=== PATIENT | male | born 1985 | race African-American/Black ===

== ENCOUNTER 2020-02-29 02:36 | Emergency (ER) | payer MEDICAID, SELFPAY ==
--- NOTE | ~2020-02-29 | CT_ITS ---
EXAMINATION: CT brain wo con DATE: 02/29/2020 03:14 INDICATION: Headache. TECHNIQUE: Computed tomography (CT) of the head was performed without intravenous contrast. The mA wa s adjusted according to patient size. Iterative reconstruction technique was employed. The dose-lengt h product was 605.33 mGy-cm. COMPARISON: None FINDINGS: There is no intracranial hemorrhage, acute infarction, or abnormal intracranial mass lesion . The ventricles are normal in size. The paranasal sinuses are clear. The mastoid air cells are vladimir l. IMPRESSION: 1. Normal brain. Reviewed, dictated and finalized at location A. D BAG MACHINE OPERATOR IMPRESSION: 1. Normal brain.
[2020-02-29 02:41] VITALS: BP 131/84; PULSE 88; RESP 16; TEMP 36.3; O2SAT 99
--- NOTE | 2020-02-29 03:02 | ED_ITS ---
HPI - Headache General Chief Complaint: Headache Stated Complaint: migraine Time Seen by Provider: 02/29/20 03:22 History of Present Illness HPI Narrative: Patient is a 34-year-old gentleman who presents the emergency department with chief complaint of headache. Patient reports he has prior history of headaches and states that this 1 is probably not the worst when he is ever had but it is a very bad 1. Patient reports has been several years since he had a headache this bad reports this been going on for about 4 days. Patient states it wakes him up from sleep at night states that is not improved by anything nor is it worsened by anything. The patient denies any other family members with similar symptoms denies carbon monoxide exposure denies fever or other flulike symptoms. The patient does report that he has had a tooth that has bothered him in his posterior molars but states that that is been doing well. Review of Systems Review of Systems: Narrative: A 10 system review of systems was completed on the patient and is negative except for what is stated in the HPI. Nursing and ancillary documentation was reviewed. PMFSH Comments Patient has past medical history significant for migraines Social history patient denies illicit drug use Exam Narrative: Exam Narrative: GENERAL: Well-appearing, well-nourished, and in no acute distress. HEAD: Normocephalic, atraumatic. EYES: PERRLA and EOMI. ENT: Nares clear, no rhinorrhea or epistaxis. Mucous membranes moist. NECK: Supple. CHEST: Clear to auscultation. No respiratory distress. HEART: Regular rate and rhythm. No murmur heard. Normal peripheral pulses. ABDOMEN: Soft, nontender, nondistended, normal active bowel sounds. EXTREMITIES: Normal range of motion. No edema. SKIN: Warm, dry, no rash. NEURO: No focal deficits. Alert and oriented x3. PSYCH: Normal mood and affect. Course Vital Signs Vital signs: Vital Signs Temperature 36.3 C L 02/29/20 02:41 Pulse Rate 88 02/29/20 02:41 Respiratory Rate 16 02/29/20 02:41 Blood Pressure 131/84 02/29/20 02:41 Pulse Oximetry 99 02/29/20 02:41 Temperature 36.3 C L 02/29/20 02:41 Pulse Rate 88 02/29/20 02:41 Respiratory Rate 16 02/29/20 02:41 Blood Pressure 131/84 02/29/20 02:41 Pulse Oximetry 99 02/29/20 02:41 Discharge Plan Discharge Clinical Impression: Headache Qualifiers: Headache type: unspecified Headache chronicity pattern: acute headache Intractability: not intractable Qualified Code(s): R51.9 - Headache, unspecified Patient Disposition: Home, Self-Care Condition: Stable Instructions: Antibiotic Form, Acute Headache (ED) Follow-up/Referrals: PHYSICIAN,TARGET PROTECTION SPECIALIST [Primary Care Provider] - Agueda Julio MD [Physician] - Time of Disposition: 04:01
[2020-02-29] MEDS: KETOROLAC 30 MG/ML VIAL (*BKC) IV PUSH (03:17)
[2020-02-29] MEDS: diphenhydrAMINE HCl INJ 50 MG/ML VIAL IV PUSH (03:17)
[2020-02-29] MEDS: SODIUM CHLORIDE 0.9% IV 1,000 ML 999 ML IV CONT (03:17)
[2020-02-29] MEDS: METOCLOPRAMIDE HCL INJ 10 MG/2 ML VIAL IV PUSH (03:17)
[2020-02-29 04:11] VITALS: BP 129/77; PULSE 85; RESP 16; O2SAT 99
== END 2020-02-29 04:12 | disposition home or self-care (01) ==
PROVIDERS: Emergency Provider Emergency Medicine
DX: R51.9 Headache, unspecified (principal)
CPT/HCPCS: 70450; 96361; 96374; 96375; 99284; J1200; J1885; J2765; J7030

== ENCOUNTER 2020-06-03 19:51 | Emergency (ER) | payer OTHER, SELFPAY ==
[2020-06-03 19:53] VITALS: BP 132/77; PULSE 109; RESP 16; TEMP 36.5; O2SAT 98
--- NOTE | 2020-06-03 21:00 | ED.BACK ---
HPI - Back Pain/Injury General Chief Complaint: Fall Stated Complaint: back injury Time Seen by Provider: 06/03/20 20:52 Source: patient, RN notes reviewed and old records reviewed History of Present Illness HPI Narrative: 34-year-old male presents to emergency department after sustaining a fall about 1 hour prior to arrival. Patient reports he was walking out of a restaurant, slipped, and fell backwards hitting his head on concrete. Patient denies loss of consciousness. No anticoagulation use. Notes reports having low back pain. He has not taken anything for the pain so far. Related Data Home Medications Medication Instructions Recorded Confirmed No Home Medications 02/29/20 02/29/20 Allergies Allergy/AdvReac Type Severity Reaction Status Date / Time No Known Allergies Allergy Verified 06/03/20 19:56 Review of Systems Review of Systems: Narrative: CONSTITUTIONAL: Denies fever, chills, or sweats. Reports posterior head pain EYES: Denies visual changes, redness, or discharge. ENT: Denies rhinorrhea, congestion, sore throat, or otalgia. CARDIOVASCULAR: Denies chest pain, palpitations, or edema. RESPIRATORY: Denies cough or dyspnea. GASTROINTESTINAL: Denies abdominal pain, nausea, vomiting, or diarrhea. GENITOURINARY: Denies dysuria or hematuria. SKIN: Denies rash or itching. MUSCULOSKELETAL: Reports low back pain NEUROLOGIC: Denies headache, numbness, dizziness, or weakness. PSYCHIATRIC: Denies anxiety or depression. All systems reviewed & are unremarkable except as noted in HPI and below (ROS) Exam Narrative: Exam Narrative: GENERAL: Well-appearing, well-nourished, and in no acute distress. HEAD: Normocephalic. Posterior head tenderness to palpation EYES: PERRLA and EOMI. ENT: Nares clear, no rhinorrhea or epistaxis. Mucous membranes moist. NECK: Supple. CHEST: Clear to auscultation. No respiratory distress. HEART: Regular rate and rhythm. No murmur heard. Normal peripheral pulses. ABDOMEN: Soft, nontender, nondistended, normal active bowel sounds. EXTREMITIES: Normal range of motion. No edema. MSK: low back TTP. SKIN: Warm, dry, no rash. NEURO: No focal deficits. Alert and oriented x3. PSYCH: Normal mood and affect. Course Course Emergency Course: 22:15 -reevaluated patient, pain improved. Counseled patient to take Tylenol Motrin/ibuprofen as needed for pain. Follow-up with medical provider within 1 week. Return to emergency department if symptoms persist, worsen, or other concerns. Due to mechanism of injury, hold on x-ray of back. Also since patient did not pass out or lose consciousness, and not on anticoagulation, held on head CT. Vital Signs Vital signs: Vital Signs Temperature 36.5 C 06/03/20 19:53 Pulse Rate 109 H 06/03/20 19:53 Respiratory Rate 16 06/03/20 19:53 Blood Pressure 132/77 06/03/20 19:53 Pulse Oximetry 98 06/03/20 19:53 Temperature 36.5 C 06/03/20 19:53 Pulse Rate 78 06/03/20 22:26 Respiratory Rate 18 06/03/20 22:26 Blood Pressure 138/78 06/03/20 22:26 Pulse Oximetry 99 06/03/20 22:26 MDM - Back Pain/Injury Medical Records Attestation: I reviewed the patient's medical records. Discharge Plan Discharge Clinical Impression: Fall Qualifiers: Encounter type: initial encounter Qualified Code(s): W19.XXXA - Unspecified fall, initial encounter Low back strain Qualifiers: Encounter type: initial encounter Qualified Code(s): S39.012A - Strain of muscle, fascia and tendon of lower back, initial encounter Traumatic injury of head Qualifiers: Encounter type: initial encounter Qualified Code(s): S09.90XA - Unspecified injury of head, initial encounter Patient Disposition: Home, Self-Care Condition: Improved Instructions: Musculoskeletal Pain (ED) Additional Instructions: 1. Follow-up with medical provider within 1 week 2. Take Tylenol Motrin/ibuprofen as needed for pain. Prescriptions: No Action No Home Medications
[2020-06-03] MEDS: ACETAMINOPHEN 325 MG TABLET 650 MG PO (21:06)
[2020-06-03] MEDS: diazePAM (*CRX) 2 MG TABLET PO (21:13)
[2020-06-03 22:26] VITALS: BP 138/78; PULSE 78; RESP 18; O2SAT 99
== END 2020-06-03 22:29 | disposition home or self-care (01) ==
PROVIDERS: Emergency Provider Emergency Medicine
DX: S09.90XA Unspecified injury of head, initial encounter (principal); S39.012A Strain of muscle, fascia and tendon of lower back, initial encounter; W01.0XXA Fall on same level from slipping, tripping and stumbling without subsequent striking against object, initial encounter
CPT/HCPCS: 99283; A9270

== ENCOUNTER 2023-04-26 11:47 | Emergency (ER) | payer OTHER, SELFPAY ==
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
[2023-04-26 12:31] VITALS: BP 126/80; PULSE 90; RESP 20; TEMP 36.4; O2SAT 100
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
[2023-04-26 14:25] VITALS: BP 125/90; PULSE 78; RESP 15; O2SAT 100
[2023-04-26 15:53] VITALS: BP 124/85; PULSE 73; RESP 16; TEMP 36.5; O2SAT 99
== END 2023-04-26 15:55 | disposition home or self-care (01) ==
PROVIDERS: Emergency Provider Nurse Practitioner Family
DX: S43.401A Unspecified sprain of right shoulder joint, initial encounter (principal); Y04.0XXA Assault by unarmed brawl or fight, initial encounter
CPT/HCPCS: 73030; 99283; A4565